=== PATIENT | male | born 1945 | race Caucasian/White ===

== ENCOUNTER 2019-05-01 17:27 | Inpatient (IN) | payer OTHER, MEDICARE ==
[~2019-05-01] VITALS: Ht 180.3 cm; Wt 115.8 kg
[2019-05-01] MEDS: ALBUTEROL/IPRATROPIUM 2.5MG/0.5MG, 3 ML NPPB SCH ×2 (18:07→18:51)
[2019-05-01 18:23] LABS: BASOPHILS # (AUTO) 0.09 x10^3/uL (0-0.1); BASOPHILS % (AUTO) 1 % (0-1); EOSINOPHILS # (AUTO) 0.18 x10^3/uL (0-0.4); EOSINOPHILS % (AUTO) 2 % (1-7); LYMPHOCYTES # (AUTO) 1.12 x10^3/uL (1-3.4); LYMPHOCYTES % (AUTO) 9 % (22-44); MD NO; MEAN CORPUSCULAR HEMOGLOBIN 29.8 pg (27.5-34.5); MEAN CORPUSCULAR HGB CONC 32.6 g/dL (33.2-36.2); MEAN CORPUSCULAR VOLUME 91.2 fL (81-97); MEAN PLATELET VOLUME 7.6 fL (7.4-10.4); MONOCYTES # (AUTO) 0.96 x10^3/uL (0.2-0.8); MONOCYTES % (AUTO) 8 % (2-9); NEUTROPHILS # (AUTO) 10.27 x10^3/uL (1.8-6.8); NEUTROPHILS % (AUTO) 81 % (42-75); PLATELET COUNT 462 x10^3/uL (130-400); RED BLOOD COUNT 4.34 x10^6/uL (4.38-5.82); RED CELL DISTRIBUTION WIDTH 14.6 % (9.4-14.8)
--- NOTE | 2019-05-01 18:23 | NUR ---
PT MEDICATED PER ORDERS. BREATHING TX GIVEN BY RT. UNDERSTANDS POC.
[2019-05-01 18:30] LABS: ALBUMIN 2.5 g/dL (3.4-5.0); ANION GAP 5 mmol/L (5-15); CALCIUM 9.2 mg/dL (8.5-10.1); CHLORIDE 104 mmol/L (98-107)
[2019-05-01 18:36] LABS: ALANINE AMINOTRANSFERASE 177 U/L (12-78); ALKALINE PHOSPHATASE 208 U/L (45-117); BILIRUBIN,TOTAL 0.7 mg/dL (0.2-1.0); TOTAL PROTEIN 7.2 g/dL (6.4-8.2); TROPONIN I < 0.015 ng/mL (0.000-0.045)
--- NOTE | 2019-05-01 19:31 | NUR ---
PAWEL BROWN NOTE: PATIENT TAKEN TO US.
[2019-05-01] MEDS ORDERED: AZITHROMYCIN 500 MG in SODIUM CHLORIDE 0.9% 250 ML IV ONE (20:00)
[2019-05-01] MEDS ORDERED: CEFTRIAXONE PMX 1GM/50ML 50 ML IV ONE ×2 (20:00→22:00)
--- NOTE | 2019-05-01 20:02 | NUR ---
ERP WAS IN FOR RE-EVAL. PT UNDERSTANDS PLAN FOR ADMISSION. BLOOD CX DRAWN AND IV STARTED. REMAINS AT BS.
[2019-05-01] MEDS ORDERED: CEFTRIAXONE PMX 1GM/50ML 50 ML ONE (20:05)
[2019-05-01] MEDS ORDERED: CLOP75TA PO (20:49)
[2019-05-01] MEDS ORDERED: SIMV10TA3 PO (20:49)
[2019-05-01] MEDS ORDERED: SERT100T32 PO (20:49)
[2019-05-01] MEDS ORDERED: PRAZ1CAP2 PO (20:49)
[2019-05-01] MEDS ORDERED: MULT-717 PO (20:49)
[2019-05-01] MEDS ORDERED: MECO5000 PO (20:49)
[2019-05-01] MEDS ORDERED: hydrALAzine 20 MG/ML, 1ML IVPush PRN (21:30)
[2019-05-01] MEDS ORDERED: ACETAMINOPHEN 325 MG TABLET PO PRN (21:30)
[2019-05-01] MEDS ORDERED: DOCUSATE 100 MG CAPSULE PO PRN (21:30)
[2019-05-01] MEDS ORDERED: ONDANSETRON ODT 4 MG PO PRN (21:30)
[2019-05-01] MEDS ORDERED: PRAZOSIN 1 MG CAPSULE PO SCH (21:30)
[2019-05-01 22:06] VITALS: BP 99/55
[2019-05-01] MEDS: ENOXAPARIN 40 MG/0.4 ML SQ SCH (22:28)
[2019-05-02 01:15] VITALS: BP 122/68
[2019-05-02 05:49] LABS: BASOPHILS # (AUTO) 0.03 x10^3/uL (0-0.1); BASOPHILS % (AUTO) 0 % (0-1); EOSINOPHILS % (AUTO) 0 % (1-7); LYMPHOCYTES % (AUTO) 6 % (22-44); MD NO; MEAN CORPUSCULAR HEMOGLOBIN 29.9 pg (27.5-34.5); MEAN CORPUSCULAR HGB CONC 32.9 g/dL (33.2-36.2); MEAN CORPUSCULAR VOLUME 90.9 fL (81-97); MEAN PLATELET VOLUME 7.7 fL (7.4-10.4); MONOCYTES # (AUTO) 0.46 x10^3/uL (0.2-0.8); MONOCYTES % (AUTO) 4 % (2-9); NEUTROPHILS # (AUTO) 11.23 x10^3/uL (1.8-6.8); NEUTROPHILS % (AUTO) 90 % (42-75); PLATELET COUNT 482 x10^3/uL (130-400); RED BLOOD COUNT 4.19 x10^6/uL (4.38-5.82); RED CELL DISTRIBUTION WIDTH 14.8 % (9.4-14.8)
[2019-05-02 06:08] LABS: ANION GAP 4 mmol/L (5-15); CALCIUM 9.6 mg/dL (8.5-10.1); CHLORIDE 107 mmol/L (98-107)
[2019-05-02 06:09] LABS: CREATININE 0.77 mg/dL (0.7-1.3)
[2019-05-02] MEDS ORDERED: ALBUTEROL/IPRATROPIUM 2.5MG/0.5MG, 3 ML NPPB SCH (07:00)
[2019-05-02 07:16] VITALS: BP 122/72
[2019-05-02] MEDS: CLOPIDOGREL 75 MG TABLET PO SCH (07:47)
[2019-05-02] MEDS: SERTRALINE 100MG TABLET PO SCH (07:48)
[2019-05-02] MEDS: CYANOCOBALAMIN 1,000 MCG TABLET PO SCH (07:48)
[2019-05-02] MEDS: MULTIVITAMINS/MINERALS TABLET PO SCH (07:48)
[2019-05-02] MEDS ORDERED: ROPI1TAB2 PO (12:35)
[2019-05-02] MEDS ORDERED: ZOLP10TA5 PO (12:35)
[2019-05-02] MEDS ORDERED: IPRA4AER INH (12:35)
[2019-05-02] MEDS ORDERED: MELA3TAB2 PO (12:35)
[2019-05-02] MEDS ORDERED: DULO30CA2 PO (12:35)
[2019-05-02] MEDS ORDERED: LOPE2CAP PO (12:35)
[2019-05-02 13:13] VITALS: BP 133/76
[2019-05-02] MEDS: ALBUTEROL/IPRATROPIUM 2.5MG/0.5MG, 3 ML NPPB SCH (19:34)
[2019-05-02 20:02] VITALS: BP 144/74
[2019-05-02] MEDS: DULOXETINE 30 MG CAPSULE.DR PO SCH (20:18)
[2019-05-02] MEDS ORDERED: MELATONIN 3 MG TABLET PO SCH (21:00)
[2019-05-02] MEDS ORDERED: ROPINIROLE 1MG TABLET PO SCH (21:00)
[2019-05-02] MEDS ORDERED: PRAZOSIN 1 MG CAPSULE PO SCH (21:00)
[2019-05-02] MEDS ORDERED: ZOLPIDEM 10MG TABLET PO SCH (21:00)
[2019-05-02] MEDS ORDERED: SIMVASTATIN 20 MG TABLET PO SCH (21:00)
[2019-05-02] MEDS ORDERED: CEFTRIAXONE PMX 2GM/50ML 50 ML IV SCH (21:30)
[2019-05-02] MEDS ORDERED: AZITHROMYCIN 500 MG in SODIUM CHLORIDE 0.9% 250 ML IV SCH (21:30)
[2019-05-02] MEDS: ENOXAPARIN 40 MG/0.4 ML SQ SCH (23:01)
[2019-05-03 01:03] VITALS: BP 111/65
[2019-05-03 05:09] LABS: BASOPHILS # (AUTO) 0.04 x10^3/uL (0-0.1); BASOPHILS % (AUTO) 0 % (0-1); EOSINOPHILS # (AUTO) 0.03 x10^3/uL (0-0.4); EOSINOPHILS % (AUTO) 0 % (1-7); LYMPHOCYTES # (AUTO) 1.67 x10^3/uL (1-3.4); LYMPHOCYTES % (AUTO) 14 % (22-44); MD NO; MEAN CORPUSCULAR HEMOGLOBIN 29.7 pg (27.5-34.5); MEAN CORPUSCULAR HGB CONC 32.7 g/dL (33.2-36.2); MEAN CORPUSCULAR VOLUME 90.8 fL (81-97); MEAN PLATELET VOLUME 7.6 fL (7.4-10.4); MONOCYTES # (AUTO) 0.82 x10^3/uL (0.2-0.8); MONOCYTES % (AUTO) 7 % (2-9); NEUTROPHILS # (AUTO) 9.35 x10^3/uL (1.8-6.8); NEUTROPHILS % (AUTO) 79 % (42-75); PLATELET COUNT 476 x10^3/uL (130-400); RED BLOOD COUNT 4.06 x10^6/uL (4.38-5.82); RED CELL DISTRIBUTION WIDTH 14.9 % (9.4-14.8)
[2019-05-03 05:20] LABS: ALANINE AMINOTRANSFERASE 186 U/L (12-78); ALBUMIN 2.2 g/dL (3.4-5.0); ANION GAP 5 mmol/L (5-15); CALCIUM 9.4 mg/dL (8.5-10.1); CHLORIDE 108 mmol/L (98-107)
[2019-05-03 05:23] LABS: ALKALINE PHOSPHATASE 174 U/L (45-117); BILIRUBIN,TOTAL 0.3 mg/dL (0.2-1.0); CREATININE 0.87 mg/dL (0.7-1.3); TOTAL PROTEIN 6.6 g/dL (6.4-8.2)
[2019-05-03] MEDS: ALBUTEROL/IPRATROPIUM 2.5MG/0.5MG, 3 ML NPPB SCH (06:40)
[2019-05-03 07:57] VITALS: BP 152/74
[2019-05-03] MEDS: CLOPIDOGREL 75 MG TABLET PO SCH (09:40)
[2019-05-03] MEDS: CYANOCOBALAMIN 1,000 MCG TABLET PO SCH (09:41)
[2019-05-03] MEDS: SERTRALINE 100MG TABLET PO SCH (09:41)
[2019-05-03] MEDS: DULOXETINE 30 MG CAPSULE.DR PO SCH (09:41)
[2019-05-03] MEDS: MULTIVITAMINS/MINERALS TABLET PO SCH (09:41)
[2019-05-03 13:16] VITALS: BP 161/85
[2019-05-03] MEDS ORDERED: GUAI200T3 PO (15:09)
[2019-05-03] MEDS ORDERED: PRED20TA PO (15:09)
[2019-05-03] MEDS ORDERED: AZIT500T5 PO (15:09)
[2019-05-03] MEDS ORDERED: CEFD300C37 PO (15:09)
== END 2019-05-03 16:35 | disposition home or self-care (01) | DRG 871 ==
LOC: ED 19:54 → EDIP 20:12 → 4EST 20:59 → DCLOUNGE 05-03 16:22
PROVIDERS: ADMIT Family Medicine; ATTEND Family Medicine
DX: A41.9 Sepsis, unspecified organism (principal); J15.9 Unspecified bacterial pneumonia; J96.01 Acute respiratory failure with hypoxia; J44.0 Chronic obstructive pulmonary disease with (acute) lower respiratory infection; J44.1 Chronic obstructive pulmonary disease with (acute) exacerbation; Z88.8 Allergy status to other drugs, medicaments and biological substances; D64.9 Anemia, unspecified; E78.5 Hyperlipidemia, unspecified; F43.10 Post-traumatic stress disorder, unspecified; G47.33 Obstructive sleep apnea (adult) (pediatric); I11.9 Hypertensive heart disease without heart failure; Z66 Do not resuscitate; Z83.3 Family history of diabetes mellitus; Z86.73 Personal history of transient ischemic attack (TIA), and cerebral infarction without residual deficits; Z98.84 Bariatric surgery status
CPT/HCPCS: 36415; 99285; J7620; 71046; 76700; 80048; 80053; 80074; 83605; 83690; 83880; 84484; 85025; 87040; 87070; 87205; 93005; 93306; 94640; 96365; 96375; G0378; J0456; J0696; J1650; J7050; J7512

== ENCOUNTER 2020-08-18 13:02 | Inpatient (IN) | payer OTHER, MEDICARE ==
[~2020-08-18] VITALS: Ht 180.3 cm; Wt 122.0 kg
[~2020-08-18 13:02] MED LIST: AZIT500T10 PO; CEFAZOLIN 1,000 MG ONE; CEFD300C37 PO; CLOP75TA PO; DULO30CA2 PO; GUAI200T37 PO; IPRA4AER INH; LOPE2CAP PO; MELA3TAB31 PO; MULT-717 PO; PHENYLEPHRINE 10 MG/ML ONE; PRAZ1CAP2 PO; PRED20TA PO; PROPOFOL 10 MG/ML, 20ML ONE; ROCURONIUM 10 MG/ML,10ML ONE; ROPI1TAB4 PO; SERT100T32 PO; SIMV10TA18 PO; SUCCINYLCHOLINE 20 MG/ML, 10ML ONE; VASOPRESSIN 20 UNIT/ML, 1ML ONE; ZOLP10TA5 PO; [UNRECOGNIZED DRUG - CODE] PO
--- NOTE | 2020-08-18 13:45 | NUR ---
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
--- NOTE | 2020-08-18 13:46 | NUR ---
pt to rm from lobby
[2020-08-18 14:07] LABS: BASOPHILS % (AUTO) 0 % (0-1); EOSINOPHILS % (AUTO) 0 % (1-7); LYMPHOCYTES % (AUTO) 8 % (22-44); MEAN CORPUSCULAR HEMOGLOBIN 30.5 pg (27.5-34.5); MEAN CORPUSCULAR HGB CONC 33.1 g/dL (33.2-36.2); MEAN PLATELET VOLUME 8.1 fL (7.4-10.4); MONOCYTES % (AUTO) 15 % (2-9); NEUTROPHILS % (AUTO) 77 % (42-75); PLATELET COUNT 270 x10^3/uL (130-400); RED BLOOD COUNT 5.06 x10^6/uL (4.38-5.82); RED CELL DISTRIBUTION WIDTH 14.3 % (9.4-14.8)
[2020-08-18 14:14] LABS: ANION GAP 9 mmol/L (5-15); CHLORIDE 106 mmol/L (98-107); CREATININE 1.11 mg/dL (0.7-1.3)
[2020-08-18 14:15] LABS: ALANINE AMINOTRANSFERASE 20 U/L (12-78); ALBUMIN 3.2 g/dL (3.4-5.0)
[2020-08-18 14:16] LABS: MD NO
[2020-08-18 14:17] LABS: ALKALINE PHOSPHATASE 115 U/L (45-117); BILIRUBIN,TOTAL 0.7 mg/dL (0.2-1.0); TOTAL PROTEIN 7.7 g/dL (6.4-8.2)
[2020-08-18] MEDS ORDERED: OMNIPAQUE 350 MG/ML, 100ML BOTTLE ONE (14:39)
[2020-08-18] MEDS ORDERED: MORPHINE SULFATE 4 MG/ML, 1ML ONE ×2 (15:50→17:18)
[2020-08-18] MEDS ORDERED: ONDANSETRON 2MG/ML, 2ML ONE (15:50)
[2020-08-18] MEDS: MORPHINE SULFATE 4 MG/ML, 1ML IVPush PRN ×2 (15:54→17:22)
[2020-08-18] MEDS ORDERED: ONDANSETRON 2MG/ML, 2ML IVPush ONE (16:00)
[2020-08-18] MEDS ORDERED: SODIUM CHLORIDE 0.9% 1,000 ML IV ONE (16:38)
[2020-08-18] MEDS ORDERED: SODIUM CHLORIDE 0.9% 1,000 ML IV SCH (16:42)
[2020-08-18] MEDS ORDERED: ONDANSETRON 2MG/ML, 2ML IVPush PRN ×2 (17:00)
[2020-08-18] MEDS ORDERED: SODIUM CHLORIDE FLUSH 10ML SYR IVF PRN (17:00)
[2020-08-18] MEDS ORDERED: ONDANSETRON ODT 4 MG PO PRN (17:00)
[2020-08-18] MEDS ORDERED: MORPHINE SULFATE 4 MG/ML, 1ML IVPush PRN (17:00)
[2020-08-18 17:39] LABS: INTERNATIONAL NORMALIZED RATIO 1.01 (0.93-1.1); PROTHROMBIN TIME 10.4 Seconds (9.6-11.5)
[2020-08-18 17:41] VITALS: BP 135/87
[2020-08-18] MEDS: CARVEDILOL 3.125 MG TABLET PO SCH (18:27)
[2020-08-18] MEDS: HEPARIN 5,000 UNITS/ML, 1ML SQ SCH (18:27)
[2020-08-18 19:27] VITALS: BP 133/83
[2020-08-18] MEDS: ALBUTEROL-IPRATROPIUM MDI INH INH SCH (20:12)
[2020-08-18] MEDS ORDERED: TEMPLATE NON-FORMULARY MED. (Ipratropium/Albuterol Sulfate (Combivent Respimat Inhal Spray INH SCH (21:00)
[2020-08-18] MEDS: MELATONIN 3 MG TABLET PO SCH (21:00)
[2020-08-18] MEDS: INSULIN LISPRO 100 UNITS/ML, PEN SQ-INSULIN SCH (21:18)
[2020-08-18] MEDS: ZOLPIDEM 10MG TABLET PO SCH (21:18)
[2020-08-18] MEDS: ROPINIROLE 1MG TABLET PO SCH (21:18)
[2020-08-18] MEDS: PRAZOSIN 2 MG CAPSULE PO SCH (21:24)
[2020-08-19 00:16] VITALS: BP 116/79
[2020-08-19] MEDS: HEPARIN 5,000 UNITS/ML, 1ML SQ SCH ×3 (01:20→17:35)
[2020-08-19 01:38] LABS: ALANINE AMINOTRANSFERASE 20 U/L (12-78); ALBUMIN 2.9 g/dL (3.4-5.0); ANION GAP 8 mmol/L (5-15); CALCIUM 9.3 mg/dL (8.5-10.1); CHLORIDE 105 mmol/L (98-107); CREATININE 1.04 mg/dL (0.7-1.3)
[2020-08-19 01:40] LABS: ALKALINE PHOSPHATASE 103 U/L (45-117); BILIRUBIN,TOTAL 0.6 mg/dL (0.2-1.0); TOTAL PROTEIN 7.2 g/dL (6.4-8.2)
[2020-08-19 02:04] LABS: MEAN CORPUSCULAR HEMOGLOBIN 30.6 pg (27.5-34.5); MEAN CORPUSCULAR HGB CONC 33.2 g/dL (33.2-36.2); MEAN PLATELET VOLUME 8.5 fL (7.4-10.4); PLATELET COUNT 308 x10^3/uL (130-400); RED BLOOD COUNT 5.08 x10^6/uL (4.38-5.82)
[2020-08-19 02:34] LABS: MD YES
[2020-08-19 02:43] LABS: BAND#(MANUAL) 0.62 x10^3/uL; BANDS%(MANUAL) 15 % (0-7); LYMPH#(MANUAL) 0.21 x10^3/uL (1-3.4); LYMPHS% (MANUAL) 5 % (22-44); MONOS#(MANUAL) 1.07 x10^3/uL (0.3-2.7); MONOS% (MANUAL) 26 % (2-9); REACTIVE LYMPHS # (MANUAL) 0.08 x10^3/uL (0-0); REACTIVE LYMPHS % (MANUAL) 2 % (0-0); SEG#(MANUAL) 2.13 x10^3/uL (1.8-6.8); SEGS% (MANUAL) 52 % (42-75)
[2020-08-19 02:44] LABS: ANISOCYTOSIS 1+; POLYCHROMASIA 1+
[2020-08-19 02:45] LABS: <PLATELET ESTIMATE> ADEQUATE
[2020-08-19 02:46] LABS: LARGE PLATELETS 1+
[2020-08-19 03:29] VITALS: BP 114/70
[2020-08-19] MEDS: CARVEDILOL 3.125 MG TABLET PO SCH ×2 (06:00→17:34)
[2020-08-19] MEDS: ALBUTEROL-IPRATROPIUM MDI INH INH SCH ×4 (06:00→19:42)
[2020-08-19 06:05] VITALS: BP 98/61
[2020-08-19 06:31] LABS: MICROSCOPIC INDICATED
[2020-08-19] MEDS: INSULIN LISPRO 100 UNITS/ML, PEN SQ-INSULIN SCH ×4 (07:00→21:51)
[2020-08-19] MEDS: SERTRALINE 100MG TABLET PO SCH (08:50)
[2020-08-19] MEDS: MULTIVITAMINS/MINERALS TABLET PO SCH (08:51)
[2020-08-19] MEDS: BISACODYL 10 MG SUPP PR SCH (09:00)
[2020-08-19] MEDS ORDERED: MECOBALAMIN 5000 MCG PO SCH (09:00)
[2020-08-19] MEDS ORDERED: BUPIVACAINE/PF 0.5% ONE (09:47)
[2020-08-19] MEDS ORDERED: EPINEPHRINE 1 MG/ML, 1ML ONE (09:47)
[2020-08-19] MEDS ORDERED: FENTANYL PF 250 MCG/5ML ONE (09:53)
[2020-08-19] MEDS ORDERED: CHLORHEXIDINE 15 ML UDC MM ONE (10:00)
[2020-08-19] MEDS ORDERED: FENTANYL PF 100 MCG/2ML IV PRN (11:30)
[2020-08-19] MEDS ORDERED: PROMETHAZINE 25 MG/ML, 1ML IVPush PRN (11:30)
[2020-08-19] MEDS ORDERED: HYDROmorphone 1 MG/ML, 1ML INJ IVPush PRN (11:30)
[2020-08-19] MEDS ORDERED: MEPERIDINE/PF 25MG/0.5ML IVPush PRN (11:30)
[2020-08-19] MEDS ORDERED: PROPOFOL 100 ML IV ONE (13:12)
[2020-08-19] MEDS ORDERED: FENTANYL PF 100 MCG/2ML IVPush PRN (13:30)
[2020-08-19] MEDS ORDERED: LIDOCAINE-MPF 1%, 2ML ENDO PRN (13:30)
[2020-08-19] MEDS ORDERED: PROPOFOL 100 ML IV PRN (13:30)
[2020-08-19] MEDS ORDERED: PHARMACY MAY ADJ FOR RENAL FX MC SCH (13:30)
[2020-08-19] MEDS: PROPOFOL 100 ML IV PRN ×3 (13:32→22:40)
[2020-08-19] MEDS: FAMOTIDINE 20 MG/2 ML IV SCH (13:33)
[2020-08-19] MEDS: PIPERACILLIN/TAZO/PMX 3.375GM 50 ML IV SCH ×2 (14:21→20:06)
[2020-08-19] MEDS ORDERED: SODIUM CHLORIDE 0.9% 1,000 ML IV SCH ×2 (14:30→16:42)
[2020-08-19] MEDS: SODIUM CHLORIDE 0.9% 1,000 ML IV SCH (14:30)
[2020-08-19] MEDS: METRONIDAZOLE PMX 500MG/100ML 100 ML IV SCH ×2 (15:21→21:52)
[2020-08-19] MEDS: MORPHINE SULFATE 4 MG/ML, 1ML IVPush PRN ×2 (20:07→21:54)
[2020-08-19] MEDS: PRAZOSIN 2 MG CAPSULE PO SCH (21:22)
[2020-08-19] MEDS: MELATONIN 3 MG TABLET PO SCH (21:22)
[2020-08-19] MEDS: ZOLPIDEM 10MG TABLET PO SCH (21:22)
[2020-08-19] MEDS: ROPINIROLE 1MG TABLET PO SCH (21:22)
[2020-08-20] MEDS: PIPERACILLIN/TAZO/PMX 3.375GM 50 ML IV SCH ×4 (01:35→20:17)
[2020-08-20] MEDS: FAMOTIDINE 20 MG/2 ML IV SCH ×2 (01:36→13:57)
[2020-08-20] MEDS: HEPARIN 5,000 UNITS/ML, 1ML SQ SCH ×3 (01:36→15:46)
[2020-08-20] MEDS: KETOROLAC 30 MG/1 ML IV PRN ×2 (02:40→13:57)
[2020-08-20] MEDS: PROPOFOL 100 ML IV PRN ×2 (05:12→07:42)
[2020-08-20 05:34] LABS: MEAN CORPUSCULAR HEMOGLOBIN 30.3 pg (27.5-34.5); MEAN CORPUSCULAR HGB CONC 33.1 g/dL (33.2-36.2); MEAN PLATELET VOLUME 8.4 fL (7.4-10.4); PLATELET COUNT 299 x10^3/uL (130-400); RED BLOOD COUNT 4.39 x10^6/uL (4.38-5.82); RED CELL DISTRIBUTION WIDTH 14.6 % (9.4-14.8)
[2020-08-20 05:41] LABS: ANION GAP 6 mmol/L (5-15); CHLORIDE 113 mmol/L (98-107); CREATININE 0.88 mg/dL (0.7-1.3)
[2020-08-20] MEDS: ALBUTEROL-IPRATROPIUM MDI INH INH SCH ×4 (06:00→18:38)
[2020-08-20] MEDS: SODIUM CHLORIDE 0.9% 1,000 ML IV SCH (06:04)
[2020-08-20] MEDS: METRONIDAZOLE PMX 500MG/100ML 100 ML IV SCH ×3 (06:04→22:00)
[2020-08-20] MEDS: CARVEDILOL 3.125 MG TABLET PO SCH ×2 (06:05→18:17)
[2020-08-20 06:37] LABS: BANDS%(MANUAL) 22 % (0-7); EOS#(MANUAL) 0.06 x10^3/uL (0.0-0.4); EOS% (MANUAL) 1 % (1-7); LYMPH#(MANUAL) 0.71 x10^3/uL (1-3.4); LYMPHS% (MANUAL) 12 % (22-44); MD YES; METAMYELOCYTES# (MANUAL) 0.06 x10^3/uL (0-0); METAMYELOCYTES% (MANUAL) 1 % (0-1); MONOS#(MANUAL) 1.42 x10^3/uL (0.3-2.7); MONOS% (MANUAL) 24 % (2-9); SEGS% (MANUAL) 39 % (42-75)
[2020-08-20 06:38] LABS: <PLATELET ESTIMATE> ADEQUATE; <PLT MORPHOLOGY> NORMAL PLT MORPH; <RBC MORPHOLOGY> NORMAL; MYELOCYTES# (MANUAL) 0.06 x10^3/uL (0-0); MYELOCYTES% (MANUAL) 1 % (0-0); PMNS WITH VACUOLES 1+
[2020-08-20] MEDS: BISACODYL 10 MG SUPP PR SCH (09:00)
[2020-08-20] MEDS: SERTRALINE 100MG TABLET PO SCH (09:53)
[2020-08-20] MEDS: MULTIVITAMINS/MINERALS TABLET PO SCH (09:53)
[2020-08-20] MEDS: ACETAMINOPHEN 325 MG TABLET PO PRN (10:50)
[2020-08-20] MEDS: MORPHINE SULFATE 4 MG/ML, 1ML IVPush PRN ×3 (10:52→20:19)
[2020-08-20] MEDS: INSULIN LISPRO 100 UNITS/ML, PEN SQ-INSULIN SCH ×3 (11:00→21:00)
[2020-08-20] MEDS: ROPINIROLE 1MG TABLET PO SCH (21:19)
[2020-08-20] MEDS: PRAZOSIN 2 MG CAPSULE PO SCH (21:20)
[2020-08-20] MEDS: MELATONIN 3 MG TABLET PO SCH (21:53)
[2020-08-20] MEDS: ACETAMINOPHEN 650 MG SUPP PR PRN (21:53)
[2020-08-20] MEDS ORDERED: D5%-0.9% NACL 1,000 ML IV SCH (22:00)
[2020-08-21] MEDS: HEPARIN 5,000 UNITS/ML, 1ML SQ SCH ×3 (01:35→17:39)
[2020-08-21] MEDS: PIPERACILLIN/TAZO/PMX 3.375GM 50 ML IV SCH ×2 (01:36→09:45)
[2020-08-21] MEDS: FAMOTIDINE 20 MG/2 ML IV SCH ×2 (01:36→14:17)
[2020-08-21 04:33] LABS: MEAN CORPUSCULAR HEMOGLOBIN 30.9 pg (27.5-34.5); MEAN CORPUSCULAR HGB CONC 33.2 g/dL (33.2-36.2); MEAN PLATELET VOLUME 8.5 fL (7.4-10.4); PLATELET COUNT 234 x10^3/uL (130-400); RED BLOOD COUNT 3.63 x10^6/uL (4.38-5.82); RED CELL DISTRIBUTION WIDTH 15.1 % (9.4-14.8)
[2020-08-21 04:37] LABS: ANION GAP 6 mmol/L (5-15); CALCIUM 7.8 mg/dL (8.5-10.1); CHLORIDE 117 mmol/L (98-107); CREATININE 0.64 mg/dL (0.7-1.3)
[2020-08-21 04:48] LABS: MD YES
[2020-08-21] MEDS: ALBUTEROL-IPRATROPIUM MDI INH INH SCH ×4 (04:58→21:00)
[2020-08-21] MEDS: METRONIDAZOLE PMX 500MG/100ML 100 ML IV SCH (04:58)
[2020-08-21] MEDS: INSULIN LISPRO 100 UNITS/ML, PEN SQ-INSULIN SCH ×4 (04:59→21:00)
[2020-08-21 05:03] LABS: ANISOCYTOSIS 1+; BANDS%(MANUAL) 17 % (0-7); LYMPH#(MANUAL) 0.41 x10^3/uL (1-3.4); LYMPHS% (MANUAL) 7 % (22-44); METAMYELOCYTES# (MANUAL) 0.06 x10^3/uL (0-0); METAMYELOCYTES% (MANUAL) 1 % (0-1); MONOS#(MANUAL) 0.59 x10^3/uL (0.3-2.7); MONOS% (MANUAL) 10 % (2-9); MYELOCYTES# (MANUAL) 0.06 x10^3/uL (0-0); MYELOCYTES% (MANUAL) 1 % (0-0); SEG#(MANUAL) 3.78 x10^3/uL (1.8-6.8); SEGS% (MANUAL) 64 % (42-75)
[2020-08-21] MEDS: CARVEDILOL 3.125 MG TABLET PO SCH ×2 (05:03→17:39)
[2020-08-21 05:04] LABS: <PLATELET ESTIMATE> ADEQUATE; LARGE PLATELETS 1+; POLYCHROMASIA 1+
[2020-08-21 08:00] VITALS: BP 143/70
[2020-08-21] MEDS: SERTRALINE 100MG TABLET PO SCH (09:44)
[2020-08-21] MEDS: MULTIVITAMINS/MINERALS TABLET PO SCH (09:44)
[2020-08-21] MEDS ORDERED: FUROSEMIDE 40 MG/4 ML IV ONE (10:00)
[2020-08-21] MEDS: BISACODYL 10 MG SUPP PR SCH (10:24)
[2020-08-21 20:01] VITALS: BP 189/98
[2020-08-21] MEDS: PRAZOSIN 2 MG CAPSULE PO SCH (20:10)
[2020-08-21] MEDS: ROPINIROLE 1MG TABLET PO SCH (20:10)
[2020-08-21] MEDS: ACETAMINOPHEN 325 MG TABLET PO PRN (20:10)
[2020-08-21] MEDS: MORPHINE SULFATE 4 MG/ML, 1ML IVPush PRN (20:39)
[2020-08-21 21:30] VITALS: BP 142/84
[2020-08-22 02:06] VITALS: BP 135/79
[2020-08-22] MEDS: KETOROLAC 30 MG/1 ML IV PRN ×2 (02:11→18:59)
[2020-08-22] MEDS: FAMOTIDINE 20 MG/2 ML IV SCH ×2 (02:12→13:00)
[2020-08-22] MEDS: HEPARIN 5,000 UNITS/ML, 1ML SQ SCH ×3 (02:12→17:00)
[2020-08-22] MEDS: MORPHINE SULFATE 4 MG/ML, 1ML IVPush PRN ×2 (03:36→11:16)
[2020-08-22 05:33] LABS: MEAN CORPUSCULAR HEMOGLOBIN 30.7 pg (27.5-34.5); MEAN CORPUSCULAR HGB CONC 33.8 g/dL (33.2-36.2); MEAN PLATELET VOLUME 8.3 fL (7.4-10.4); PLATELET COUNT 312 x10^3/uL (130-400); RED BLOOD COUNT 4.12 x10^6/uL (4.38-5.82); RED CELL DISTRIBUTION WIDTH 14.7 % (9.4-14.8)
[2020-08-22] MEDS: INSULIN LISPRO 100 UNITS/ML, PEN SQ-INSULIN SCH ×4 (06:00→21:00)
[2020-08-22] MEDS: CARVEDILOL 3.125 MG TABLET PO SCH (06:06)
[2020-08-22 06:27] LABS: MD YES
[2020-08-22 06:28] LABS: BAND#(MANUAL) 0.32 x10^3/uL; BANDS%(MANUAL) 3 % (0-7); METAMYELOCYTES# (MANUAL) 0.11 x10^3/uL (0-0); METAMYELOCYTES% (MANUAL) 1 % (0-1); MYELOCYTES# (MANUAL) 0.11 x10^3/uL (0-0); MYELOCYTES% (MANUAL) 1 % (0-0); SEG#(MANUAL) 8.42 x10^3/uL (1.8-6.8); SEGS% (MANUAL) 78 % (42-75)
[2020-08-22 06:29] LABS: <PLATELET ESTIMATE> ADEQUATE; <PLT MORPHOLOGY> NORMAL PLT MORPH; ANISOCYTOSIS 1+; POLYCHROMASIA 1+
[2020-08-22 06:30] LABS: LYMPH#(MANUAL) 0.97 x10^3/uL (1-3.4); LYMPHS% (MANUAL) 9 % (22-44); MONOS#(MANUAL) 0.86 x10^3/uL (0.3-2.7); MONOS% (MANUAL) 8 % (2-9)
[2020-08-22 07:39] VITALS: BP 136/72
[2020-08-22] MEDS: ALBUTEROL-IPRATROPIUM MDI INH INH SCH ×4 (08:04→20:48)
[2020-08-22] MEDS: BISACODYL 10 MG SUPP PR SCH (08:04)
[2020-08-22] MEDS: SERTRALINE 100MG TABLET PO SCH (08:05)
[2020-08-22] MEDS: MULTIVITAMINS/MINERALS TABLET PO SCH (08:05)
[2020-08-22] MEDS: SODIUM CHLORIDE 0.45% 1,000 ML IV SCH (08:21)
[2020-08-22] MEDS: LACTOBACILLUS CHEW TABLET PO SCH ×3 (08:21→17:01)
[2020-08-22 12:53] VITALS: BP 136/71
[2020-08-22] MEDS: ACETAMINOPHEN 325 MG TABLET PO PRN ×2 (13:00→17:01)
[2020-08-22] MEDS ORDERED: CEFTRIAXONE PMX 2GM/50ML 50 ML IVPB SCH (13:30)
[2020-08-22] MEDS: METRONIDAZOLE PMX 500MG/100ML 100 ML IV SCH ×2 (13:44→22:18)
[2020-08-22] MEDS: CARVEDILOL 6.25 MG TABLET PO SCH (17:01)
[2020-08-22 20:14] VITALS: BP 122/52
[2020-08-22] MEDS: ROPINIROLE 1MG TABLET PO SCH (21:00)
[2020-08-22] MEDS: PRAZOSIN 2 MG CAPSULE PO SCH (21:00)
[2020-08-23 00:30] VITALS: BP 168/88
[2020-08-23 02:00] VITALS: BP 135/73
[2020-08-23] MEDS: SODIUM CHLORIDE 0.45% 1,000 ML IV SCH ×2 (02:26→21:13)
[2020-08-23] MEDS: HEPARIN 5,000 UNITS/ML, 1ML SQ SCH ×3 (02:27→17:27)
[2020-08-23] MEDS: FAMOTIDINE 20 MG/2 ML IV SCH ×2 (02:28→13:30)
[2020-08-23] MEDS: ACETAMINOPHEN 650 MG SUPP PR PRN (04:37)
[2020-08-23] MEDS: METRONIDAZOLE PMX 500MG/100ML 100 ML IV SCH (05:35)
[2020-08-23] MEDS: CARVEDILOL 6.25 MG TABLET PO SCH ×2 (06:00→17:05)
[2020-08-23] MEDS: ALBUTEROL-IPRATROPIUM MDI INH INH SCH ×4 (06:00→20:57)
[2020-08-23] MEDS: INSULIN LISPRO 100 UNITS/ML, PEN SQ-INSULIN SCH ×4 (06:00→21:00)
[2020-08-23 07:04] LABS: MEAN CORPUSCULAR HEMOGLOBIN 29.2 pg (27.5-34.5); MEAN CORPUSCULAR HGB CONC 32.2 g/dL (33.2-36.2); MEAN PLATELET VOLUME 8.4 fL (7.4-10.4); PLATELET COUNT 446 x10^3/uL (130-400); RED BLOOD COUNT 4.63 x10^6/uL (4.38-5.82); RED CELL DISTRIBUTION WIDTH 14.5 % (9.4-14.8)
[2020-08-23 07:05] VITALS: BP 142/93
[2020-08-23 07:13] LABS: ANION GAP 5 mmol/L (5-15); CALCIUM 8.8 mg/dL (8.5-10.1); CHLORIDE 119 mmol/L (98-107); CREATININE 0.83 mg/dL (0.7-1.3)
[2020-08-23 07:31] LABS: MD YES
[2020-08-23 07:33] LABS: BAND#(MANUAL) 1.63 x10^3/uL; BANDS%(MANUAL) 7 % (0-7); LYMPH#(MANUAL) 2.56 x10^3/uL (1-3.4); LYMPHS% (MANUAL) 11 % (22-44); MONOS#(MANUAL) 2.33 x10^3/uL (0.3-2.7); MONOS% (MANUAL) 10 % (2-9); MYELOCYTES# (MANUAL) 0.47 x10^3/uL (0-0); MYELOCYTES% (MANUAL) 2 % (0-0); SEG#(MANUAL) 16.31 x10^3/uL (1.8-6.8); SEGS% (MANUAL) 70 % (42-75)
[2020-08-23 07:34] LABS: <PLATELET ESTIMATE> INCREASED; <RBC MORPHOLOGY> NORMAL
[2020-08-23 07:35] LABS: LARGE PLATELETS 1+
[2020-08-23] MEDS ORDERED: SODIUM CHLORIDE 0.45% 1,000 ML IV SCH (08:30)
[2020-08-23] MEDS ORDERED: POTASSIUM CHLORIDE 20 MEQ TAB.ER.PRT PO ONE (08:30)
[2020-08-23] MEDS: BISACODYL 10 MG SUPP PR SCH (09:00)
[2020-08-23] MEDS: MULTIVITAMINS/MINERALS TABLET PO SCH (10:03)
[2020-08-23] MEDS: LACTOBACILLUS CHEW TABLET PO SCH ×3 (10:03→17:05)
[2020-08-23] MEDS: SERTRALINE 100MG TABLET PO SCH (10:04)
[2020-08-23] MEDS: MEROPENEM 1 GM in SODIUM CHLORIDE 0.9% 100 ML IV SCH ×3 (11:47→19:27)
[2020-08-23 12:40] VITALS: BP 128/94
[2020-08-23] MEDS: RISPERIDONE 0.5 MG TABLET PO SCH ×2 (17:06→22:53)
[2020-08-23 19:42] VITALS: BP 160/64
[2020-08-23] MEDS: PRAZOSIN 2 MG CAPSULE PO SCH (21:00)
[2020-08-23] MEDS ORDERED: PRAZOSIN 1 MG CAPSULE ONE (22:36)
[2020-08-23] MEDS ORDERED: PRAZOSIN 5 MG CAPSULE ONE (22:40)
[2020-08-23 22:49] VITALS: BP 131/75
[2020-08-23] MEDS: ROPINIROLE 1MG TABLET PO SCH (22:53)
[2020-08-24] VITALS (8 sets, daily range): BP systolic 96–180; BP diastolic 42–95
[2020-08-24] MEDS: HEPARIN 5,000 UNITS/ML, 1ML SQ SCH ×3 (02:01→17:53)
[2020-08-24] MEDS: FAMOTIDINE 20 MG/2 ML IV SCH ×2 (02:01→13:57)
[2020-08-24] MEDS: MEROPENEM 1 GM in SODIUM CHLORIDE 0.9% 100 ML IV SCH ×3 (02:47→19:00)
[2020-08-24 05:48] LABS: MEAN CORPUSCULAR HEMOGLOBIN 30.1 pg (27.5-34.5); MEAN CORPUSCULAR HGB CONC 32.5 g/dL (33.2-36.2); MEAN PLATELET VOLUME 8.5 fL (7.4-10.4); PLATELET COUNT 265 x10^3/uL (130-400); RED BLOOD COUNT 4.03 x10^6/uL (4.38-5.82)
[2020-08-24] MEDS: CARVEDILOL 6.25 MG TABLET PO SCH ×2 (05:54→17:50)
[2020-08-24 05:59] LABS: ANION GAP 9 mmol/L (5-15); CALCIUM 8.4 mg/dL (8.5-10.1); CHLORIDE 121 mmol/L (98-107)
[2020-08-24] MEDS: INSULIN LISPRO 100 UNITS/ML, PEN SQ-INSULIN SCH ×2 (06:00→11:00)
[2020-08-24 06:54] LABS: MD YES
[2020-08-24 06:58] LABS: BAND#(MANUAL) 0.73 x10^3/uL; BANDS%(MANUAL) 7 % (0-7); EOS% (MANUAL) 1 % (1-7); LYMPH#(MANUAL) 1.14 x10^3/uL (1-3.4); LYMPHS% (MANUAL) 11 % (22-44); METAMYELOCYTES% (MANUAL) 1 % (0-1); MONOS#(MANUAL) 0.62 x10^3/uL (0.3-2.7); MONOS% (MANUAL) 6 % (2-9); SEGS% (MANUAL) 74 % (42-75)
[2020-08-24 06:59] LABS: POLYCHROMASIA 1+
[2020-08-24 07:01] LABS: <PLATELET ESTIMATE> ADEQUATE; <PLT MORPHOLOGY> NORMAL PLT MORPH
[2020-08-24] MEDS: ALBUTEROL-IPRATROPIUM MDI INH INH SCH ×4 (07:16→19:00)
[2020-08-24] MEDS: POTASSIUM CHLORIDE 40 MEQ in DEXTROSE 5% 1,000 ML IV SCH (08:59)
[2020-08-24] MEDS: BISACODYL 10 MG SUPP PR SCH (09:00)
[2020-08-24] MEDS: MULTIVITAMINS/MINERALS TABLET PO SCH (09:00)
[2020-08-24] MEDS: LACTOBACILLUS CHEW TABLET PO SCH ×3 (09:00→17:49)
[2020-08-24] MEDS: SERTRALINE 100MG TABLET PO SCH (09:00)
[2020-08-24 10:50] LABS: CRYPTOSPORIDIUM ANTIGEN Negative (Negative)
[2020-08-24] MEDS ORDERED: FILTER 0.22 MICRON IV SCH (12:00)
[2020-08-24] MEDS ORDERED: AMIODARONE 150 MG in DEXTROSE 5% 100 ML IV ONE (12:00)
[2020-08-24] MEDS: AMIODARONE 450 MG in DEXTROSE 5% 241 ML IV PRN ×2 (12:10→21:35)
[2020-08-24] MEDS: RISPERIDONE 0.5 MG TABLET PO SCH (22:33)
[2020-08-24] MEDS: ROPINIROLE 1MG TABLET PO SCH (22:33)
[2020-08-24] MEDS: PRAZOSIN 2 MG CAPSULE PO SCH (22:33)
[2020-08-24] MEDS: MELATONIN 3 MG TABLET PO SCH (23:52)
[2020-08-25] MEDS ORDERED: QUETIAPINE 25MG TABLET PO PRN
[2020-08-25] MEDS ORDERED: INSTRUCTION SEE COMMENTS XX PRN
[2020-08-25] MEDS ORDERED: AVOID BENZODIAZEPINES MC PRN
[2020-08-25] MEDS: HEPARIN 5,000 UNITS/ML, 1ML SQ SCH ×3 (02:00→18:20)
[2020-08-25] MEDS: POTASSIUM CHLORIDE 40 MEQ in DEXTROSE 5% 1,000 ML IV SCH ×2 (02:03→20:13)
[2020-08-25] MEDS: FAMOTIDINE 20 MG/2 ML IV SCH (02:03)
[2020-08-25] MEDS: MEROPENEM 1 GM in SODIUM CHLORIDE 0.9% 100 ML IV SCH ×3 (03:09→20:13)
[2020-08-25 06:19] VITALS: BP 166/94
[2020-08-25] MEDS: CARVEDILOL 6.25 MG TABLET PO SCH ×2 (06:19→18:20)
[2020-08-25 07:18] VITALS: BP 145/89
[2020-08-25] MEDS: ALBUTEROL-IPRATROPIUM MDI INH INH SCH ×4 (07:30→20:04)
[2020-08-25 07:40] LABS: BASOPHILS % (AUTO) 1 % (0-1); EOSINOPHILS % (AUTO) 1 % (1-7); LYMPHOCYTES % (AUTO) 8 % (22-44); MEAN CORPUSCULAR HEMOGLOBIN 29.9 pg (27.5-34.5); MEAN CORPUSCULAR HGB CONC 32.4 g/dL (33.2-36.2); MEAN PLATELET VOLUME 8.4 fL (7.4-10.4); MONOCYTES % (AUTO) 7 % (2-9); NEUTROPHILS % (AUTO) 83 % (42-75); PLATELET COUNT 258 x10^3/uL (130-400); RED BLOOD COUNT 4.08 x10^6/uL (4.38-5.82); RED CELL DISTRIBUTION WIDTH 15.1 % (9.4-14.8)
[2020-08-25 07:50] LABS: ANION GAP 6 mmol/L (5-15); CALCIUM 8.4 mg/dL (8.5-10.1); CHLORIDE 119 mmol/L (98-107); TRIGLYCERIDES 176 mg/dL (50-200)
[2020-08-25 08:13] LABS: MD SCAN
[2020-08-25] MEDS ORDERED: BISACODYL 10 MG SUPP PR PRN (09:00)
[2020-08-25] MEDS ORDERED: CARVEDILOL 3.125 MG TABLET PO ONE (10:30)
[2020-08-25] MEDS: MULTIVITAMINS/MINERALS TABLET PO SCH (11:02)
[2020-08-25] MEDS: SERTRALINE 100MG TABLET PO SCH (11:02)
[2020-08-25] MEDS: LACTOBACILLUS CHEW TABLET PO SCH ×3 (11:02→18:21)
[2020-08-25 12:06] VITALS: BP 134/91
[2020-08-25] MEDS: FAMOTIDINE 20 MG TABLET PO SCH (13:28)
[2020-08-25] MEDS ORDERED: AMIODARONE 200 MG TABLET PO ONE (13:30)
[2020-08-25 19:39] VITALS: BP 138/84
[2020-08-25] MEDS: ROPINIROLE 1MG TABLET PO SCH ×2 (20:13→21:00)
[2020-08-25] MEDS: RISPERIDONE 0.5 MG TABLET PO SCH ×2 (20:13→21:00)
[2020-08-25] MEDS: PRAZOSIN 2 MG CAPSULE PO SCH ×2 (20:13→21:00)
[2020-08-25] MEDS: MELATONIN 3 MG TABLET PO SCH ×2 (20:13→21:00)
[2020-08-26] MEDS: FAMOTIDINE 20 MG TABLET PO SCH ×2 (02:29→12:49)
[2020-08-26] MEDS: HEPARIN 5,000 UNITS/ML, 1ML SQ SCH ×3 (02:29→17:40)
[2020-08-26] MEDS: MEROPENEM 1 GM in SODIUM CHLORIDE 0.9% 100 ML IV SCH ×3 (02:32→21:16)
[2020-08-26] MEDS: ALBUTEROL-IPRATROPIUM MDI INH INH SCH ×4 (06:00→19:03)
[2020-08-26] MEDS: LACTOBACILLUS CHEW TABLET PO SCH ×3 (06:48→18:13)
[2020-08-26] MEDS: CARVEDILOL 6.25 MG TABLET PO SCH ×2 (06:49→18:13)
[2020-08-26 06:53] LABS: ANION GAP 4 mmol/L (5-15); BASOPHILS % (AUTO) 0 % (0-1); CALCIUM 8.8 mg/dL (8.5-10.1); CHLORIDE 110 mmol/L (98-107); CREATININE 0.69 mg/dL (0.7-1.3); EOSINOPHILS % (AUTO) 2 % (1-7); LYMPHOCYTES % (AUTO) 5 % (22-44); MEAN CORPUSCULAR HGB CONC 32.5 g/dL (33.2-36.2); MEAN PLATELET VOLUME 9.3 fL (7.4-10.4); MONOCYTES % (AUTO) 5 % (2-9); NEUTROPHILS % (AUTO) 88 % (42-75); PLATELET COUNT 324 x10^3/uL (130-400); RED BLOOD COUNT 4.56 x10^6/uL (4.38-5.82)
[2020-08-26 07:27] VITALS: BP 128/76
[2020-08-26 07:30] LABS: MD SCAN
[2020-08-26] MEDS: AMIODARONE 200 MG TABLET PO SCH (08:32)
[2020-08-26] MEDS: SERTRALINE 100MG TABLET PO SCH (08:32)
[2020-08-26] MEDS: MULTIVITAMINS/MINERALS TABLET PO SCH (08:32)
[2020-08-26] MEDS ORDERED: VANCOMYCIN 50 MG/ML ORAL SUSP PO SCH (10:30)
[2020-08-26] MEDS: SODIUM CHLORIDE 0.9% 1,000 ML IV SCH (11:18)
[2020-08-26 11:59] LABS: CLOSTRIDIUM DIFFICILE ANTIGEN NEGATIVE; CLOSTRIDIUM DIFFICILE TOXIN NEGATIVE (Negative)
[2020-08-26] MEDS: LOPERAMIDE 2 MG CAPSULE PO SCH ×2 (12:30→18:13)
[2020-08-26 13:43] VITALS: BP 101/64
[2020-08-26] MEDS ORDERED: OMNIPAQUE 350 MG/ML, 100ML BOTTLE ONE (15:33)
[2020-08-26 21:13] VITALS: BP 118/76
[2020-08-26] MEDS: MELATONIN 3 MG TABLET PO SCH (21:16)
[2020-08-26] MEDS: PRAZOSIN 2 MG CAPSULE PO SCH (21:16)
[2020-08-26] MEDS: ROPINIROLE 1MG TABLET PO SCH (21:16)
[2020-08-26] MEDS: RISPERIDONE 0.5 MG TABLET PO SCH (21:17)
[2020-08-27] MEDS: LOPERAMIDE 2 MG CAPSULE PO SCH ×4 (00:30→18:08)
[2020-08-27] MEDS: FAMOTIDINE 20 MG TABLET PO SCH ×2 (01:30→13:00)
[2020-08-27] MEDS: HEPARIN 5,000 UNITS/ML, 1ML SQ SCH ×3 (01:35→18:08)
[2020-08-27] MEDS: SODIUM CHLORIDE 0.9% 1,000 ML IV SCH ×2 (03:25→18:41)
[2020-08-27] MEDS: ALBUTEROL-IPRATROPIUM MDI INH INH SCH ×4 (06:00→19:54)
[2020-08-27] MEDS: MEROPENEM 1 GM in SODIUM CHLORIDE 0.9% 100 ML IV SCH ×3 (06:18→21:04)
[2020-08-27] MEDS: CARVEDILOL 6.25 MG TABLET PO SCH ×2 (06:18→18:08)
[2020-08-27 08:12] VITALS: BP 112/71
[2020-08-27 08:44] LABS: BASOPHILS % (AUTO) 1 % (0-1); EOSINOPHILS % (AUTO) 1 % (1-7); LYMPHOCYTES % (AUTO) 5 % (22-44); MEAN CORPUSCULAR HEMOGLOBIN 30.6 pg (27.5-34.5); MEAN CORPUSCULAR HGB CONC 32.3 g/dL (33.2-36.2); MEAN PLATELET VOLUME 9.6 fL (7.4-10.4); MONOCYTES % (AUTO) 5 % (2-9); NEUTROPHILS % (AUTO) 89 % (42-75); PLATELET COUNT 204 x10^3/uL (130-400); RED BLOOD COUNT 3.96 x10^6/uL (4.38-5.82); RED CELL DISTRIBUTION WIDTH 15.6 % (9.4-14.8)
[2020-08-27 08:53] LABS: ANION GAP 6 mmol/L (5-15); CALCIUM 8.3 mg/dL (8.5-10.1); CHLORIDE 113 mmol/L (98-107); CREATININE 0.64 mg/dL (0.7-1.3)
[2020-08-27] MEDS: AMIODARONE 200 MG TABLET PO SCH (09:02)
[2020-08-27] MEDS: LACTOBACILLUS CHEW TABLET PO SCH ×3 (09:02→18:08)
[2020-08-27] MEDS: SERTRALINE 100MG TABLET PO SCH (09:02)
[2020-08-27] MEDS: MULTIVITAMINS/MINERALS TABLET PO SCH (09:03)
[2020-08-27 09:52] LABS: MD SCAN
[2020-08-27 14:36] VITALS: BP 113/70
[2020-08-27 20:07] VITALS: BP 103/68
[2020-08-27] MEDS: ROPINIROLE 1MG TABLET PO SCH (21:04)
[2020-08-27] MEDS: PRAZOSIN 2 MG CAPSULE PO SCH (21:04)
[2020-08-27] MEDS: MELATONIN 3 MG TABLET PO SCH (21:04)
[2020-08-27] MEDS: RISPERIDONE 0.5 MG TABLET PO SCH (21:15)
[2020-08-28 00:16] VITALS: BP 110/65
[2020-08-28] MEDS ORDERED: FAMOTIDINE 40 MG TABLET ONE ×2 (00:57→13:07)
[2020-08-28] MEDS: LOPERAMIDE 2 MG CAPSULE PO SCH ×4 (01:02→18:05)
[2020-08-28] MEDS: FAMOTIDINE 20 MG TABLET PO SCH ×2 (01:03→13:10)
[2020-08-28] MEDS: HEPARIN 5,000 UNITS/ML, 1ML SQ SCH ×3 (01:04→18:06)
[2020-08-28] MEDS: MEROPENEM 1 GM in SODIUM CHLORIDE 0.9% 100 ML IV SCH ×3 (05:42→21:35)
[2020-08-28] MEDS: CARVEDILOL 6.25 MG TABLET PO SCH ×2 (05:43→18:06)
[2020-08-28] MEDS: ALBUTEROL-IPRATROPIUM MDI INH INH SCH ×4 (06:50→20:24)
[2020-08-28 09:00] VITALS: BP 109/67
[2020-08-28] MEDS: LACTOBACILLUS CHEW TABLET PO SCH ×3 (09:15→18:05)
[2020-08-28] MEDS: MULTIVITAMINS/MINERALS TABLET PO SCH (09:15)
[2020-08-28] MEDS: AMIODARONE 200 MG TABLET PO SCH (09:15)
[2020-08-28] MEDS: SERTRALINE 100MG TABLET PO SCH (09:15)
[2020-08-28] MEDS: SODIUM CHLORIDE 0.9% 1,000 ML IV SCH (13:00)
[2020-08-28 13:34] VITALS: BP 114/71
[2020-08-28 19:11] VITALS: BP 123/69
[2020-08-28] MEDS: PRAZOSIN 2 MG CAPSULE PO SCH (21:36)
[2020-08-28] MEDS: ROPINIROLE 1MG TABLET PO SCH (21:36)
[2020-08-28] MEDS: MELATONIN 3 MG TABLET PO SCH (21:36)
[2020-08-28] MEDS: RISPERIDONE 0.5 MG TABLET PO SCH (21:37)
[2020-08-29] MEDS: LOPERAMIDE 2 MG CAPSULE PO SCH ×4 (00:44→12:10)
[2020-08-29] MEDS: HEPARIN 5,000 UNITS/ML, 1ML SQ SCH ×2 (01:40→12:11)
[2020-08-29] MEDS: FAMOTIDINE 20 MG TABLET PO SCH ×2 (01:40→13:30)
[2020-08-29 01:57] VITALS: BP 112/66
[2020-08-29] MEDS: SODIUM CHLORIDE 0.9% 1,000 ML IV SCH (05:56)
[2020-08-29] MEDS: CARVEDILOL 6.25 MG TABLET PO SCH (05:56)
[2020-08-29] MEDS: MEROPENEM 1 GM in SODIUM CHLORIDE 0.9% 100 ML IV SCH ×2 (05:56→13:30)
[2020-08-29 05:57] VITALS: BP 123/75
[2020-08-29] MEDS: ALBUTEROL-IPRATROPIUM MDI INH INH SCH ×3 (07:14→14:11)
[2020-08-29 07:26] VITALS: BP 106/72
[2020-08-29] MEDS: MULTIVITAMINS/MINERALS TABLET PO SCH (09:05)
[2020-08-29] MEDS: LACTOBACILLUS CHEW TABLET PO SCH ×2 (09:05→12:00)
[2020-08-29] MEDS: SERTRALINE 100MG TABLET PO SCH (09:05)
[2020-08-29] MEDS: AMIODARONE 200 MG TABLET PO SCH (09:06)
[2020-08-29 12:42] VITALS: BP 144/75
== END 2020-08-29 16:13 | disposition home or self-care (01) | DRG 329 ==
LOC: ED 15:36 → EDIP 17:04 → 3N 17:32 → CCU 08-19 12:31 → 4NE 08-21 12:26 → 5SO 08-24 11:22
PROVIDERS: ADMIT Internal Medicine; ATTEND Family Medicine
PROC: 0WPF0JZ Removal of Synthetic Substitute from Abdominal Wall, Open Approach (ICD-10-PCS; 2020-08-19)
PROC: 0WJF4ZZ Inspection of Abdominal Wall, Percutaneous Endoscopic Approach (ICD-10-PCS; 2020-08-19)
PROC: 0DB80ZZ Excision of Small Intestine, Open Approach (ICD-10-PCS; principal; 2020-08-19 10:45)
PROC: 0DNW0ZZ Release Peritoneum, Open Approach (ICD-10-PCS; 2020-08-19 10:45)
DX: K56.51 Intestinal adhesions [bands], with partial obstruction (principal); E43 Unspecified severe protein-calorie malnutrition; G93.41 Metabolic encephalopathy; J96.01 Acute respiratory failure with hypoxia; D62 Acute posthemorrhagic anemia; E87.0 Hyperosmolality and hypernatremia; I50.32 Chronic diastolic (congestive) heart failure; R57.9 Shock, unspecified; Z20.828 Contact with and (suspected) exposure to other viral communicable diseases; K56.7 Ileus, unspecified; Z68.37 Body mass index [BMI] 37.0-37.9, adult; E66.9 Obesity, unspecified; E78.5 Hyperlipidemia, unspecified; E83.51 Hypocalcemia; F43.10 Post-traumatic stress disorder, unspecified; G47.33 Obstructive sleep apnea (adult) (pediatric); I11.0 Hypertensive heart disease with heart failure; I48.91 Unspecified atrial fibrillation; Z53.31 Laparoscopic surgical procedure converted to open procedure; Z83.3 Family history of diabetes mellitus; Z86.73 Personal history of transient ischemic attack (TIA), and cerebral infarction without residual deficits; Z98.84 Bariatric surgery status; Z88.8 Allergy status to other drugs, medicaments and biological substances; I35.1 Nonrheumatic aortic (valve) insufficiency; J44.9 Chronic obstructive pulmonary disease, unspecified
CPT/HCPCS: 36415; 36600; 74018; 87046; 87427; 89055; 96374; 96375; 96376; 99285; J7042; S0020; 71045; 74177; 80048; 80053; 81001; 82140; 82330; 82533; 82803; 82947; 82962; 83036; 83605; 83615; 83690; 83735; 83880; 84132; 84295; 84478; 85014; 85025; 85610; 86850; 86900; 87040; 87070; 87077; 87081; 87086; 87186; 87205; 87324; 87328; 87329; 87635; 88300; 88307; 93005; 93306; 94002; 94003; 94150; 94640; G0378; J0171; J0690; J0696; J1644; J1885; J1940; J2185; J2405; J2543; J2704; J3010; J3480; J7060; J7070; Q9967; J0282; J0330; J1815; J2270; J2370; J7030